=== PATIENT | female | born 1955 | race Caucasian/White ===

== ENCOUNTER → 2016-06-05 | Outpatient (CLI) | payer BC ==
[~2016-06-05] MED LIST: CALC0.25 PO; CYAN1TAB14 PO; LEVO50TA4 PO; LINA5TAB PO; LISI1TAB11 PO; METO-277 PO; SIMV80TA5 PO
[2016-06-05 10:43] LABS: BASOPHILS # (AUTO) 0.1 T/MM3 (0-0.2); BASOPHILS % (AUTO) 0.8 % (0-2); EOSINOPHILS # (AUTO) 0.2 T/MM3 (0-0.5); EOSINOPHILS % (AUTO) 2.5 % (0-4); HCT - HEMATOCRIT 40.5 % (36-46); HGB - HEMOGLOBIN 12.8 GM/DL (12-16); IMMATURE GRANULOCYTE # (AUTO) 0.01 T/MM3 (0.00-0.03); IMMATURE GRANULOCYTE % (AUTO) 0.2 % (0.0-0.5); LYMPHOCYTES % (AUTO) 15.6 % (23-45); MEAN CORPUSCULAR HGB 28.6 UUG (26-34); MEAN CORPUSCULAR HGB CONC(MCHC 31.6 GM/DL (31-37); MEAN CORPUSCULAR VOLUME 90.4 UM3 (80-100); MEAN PLATELET VOLUME 11.5 UM3 (9.4-12.4); MONOCYTES # (AUTO) 0.4 T/MM3 (0-0.8); MONOCYTES % (AUTO) 6.7 % (0-9.0); NEUTROPHILS #(AUTO)-ABSOLUTE 4.5 T/MM3 (1.8-7.7); NEUTROPHILS % (AUTO) 74.2 % (33-66); RED BLOOD COUNT 4.48 M/MM3 (4.00-5.20); WBC - WHITE BLOOD COUNT 6.1 T/MM3 (4.5-11.0)
[2016-06-05 10:53] LABS: ALBUMIN 4.1 G/DL (3.5-5.0); ALKALINE PHOSPHATASE 166 U/L (38-126); ANION GAP 11 MEQ/L (5-15); BUN/CREATININE RATIO 13 RATIO (6-26); CALCIUM 10.4 MG/DL (8.4-10.2); CHLORIDE 110 MEQ/L (98-107); CO2 - CARBON DIOXIDE 25 MEQ/L (22-30); CREATININE 1.9 MG/DL (0.7-1.2); GLOMERULAR FILTRATION RATE 27; GLUCOSE 157 MG/DL (65-110); POTASSIUM 4.7 MEQ/L (3.6-5); SODIUM 146 MEQ/L (134-144); TOTAL PROTEIN 7.2 G/DL (6.3-8.2)
[2016-06-05 10:54] LABS: ALBUMIN/GLOBULIN RATIO 1.3 RATIO (1.1-2.2); ALT (SGPT) 39 U/L (9-52); AST (SGOT) 35 U/L (14-36); LDH 448 U/L (313-618)
[2016-06-05 11:02] LABS: IGA - IMMUNOGLOBULIN A 257.66 MG/DL (70-400); IGG - IMMUNOGLOBULIN G 844.04 MG/DL (700-1600); IGM - IMMUNOGLOBULIN M 41.29 MG/DL (40-230)
[2016-06-05 11:11] LABS: PHOSPHORUS 2.3 MG/DL (2.5-4.5)
== END ==
LOC: LAB 10:02
PROVIDERS: ATTEND Specialist
DX: D63.1 Anemia in chronic kidney disease (principal); D47.2 Monoclonal gammopathy; N18.3 Chronic kidney disease, stage 3 (moderate); I10 Essential (primary) hypertension; N25.81 Secondary hyperparathyroidism of renal origin
CPT/HCPCS: 36415; 80053; 82306; 82784; 83615; 83883; 83970; 84100; 84155; 84165; 85025; 86334

== ENCOUNTER → 2016-06-21 | Outpatient (CLI) | payer BC ==
--- NOTE | 2016-06-23 10:55 | DI ---
Indication: ITS.REASON: E21.0 Primary hyperparathyroidism PROCEDURE: NM PARATHYROID SCAN: Encounter: Initial Technique: 21.9 mCi of Tc-99m sestamibi was administered intravenously via the right antecubital fossa. Early and delayed planar and SPECT images were obtained. Findings: Early images demonstrate diffuse radiotracer uptake in both lobes of the thyroid gland. Delayed images demonstrate slight washout of the radiotracer from the thyroid gland with mildly delayed clearance in the right lower parathyroid gland. Impression: Localization of a right lower parathyroid gland adenoma. .
== END ==
LOC: IMA 12:06
PROVIDERS: ATTEND Internal Medicine Endocrinology, Diabetes & Metabolism
DX: E21.0 Primary hyperparathyroidism (principal); D35.1 Benign neoplasm of parathyroid gland
CPT/HCPCS: 78070; 78803; A9500